=== PATIENT | female | born 1975 | race Caucasian/White ===

== ENCOUNTER 2020-12-17 16:33 | Emergency (ER) | payer MEDICAID, SELFPAY ==
[2020-12-17 16:34] VITALS: BP 142/94; PULSE 90; RESP 18; TEMP 37; O2SAT 97; BMI 29.0
--- NOTE | 2020-12-17 17:27 | CT_ITS ---
PROCEDURE INFORMATION: Exam: CT Abdomen And Pelvis With Contrast Exam date and time: 12/17/20 05:27 PM Age: 45 years old Clinical indication: Abdominal pain; Generalized; Prior surgery; Surgery date: 6+ months; Surgery type: Hysterectomy and bladder; Patient HX: HX of bladder SX, HX of multiple UTI, pain into back, PT has to cath herself due to complications from bladder SX; Additional info: Abdominal pain, HX of bladder surgery TECHNIQUE: Imaging protocol: Computed tomography of the abdomen and pelvis with contrast. Radiation optimization: All CT scans at this facility use at least one of these dose optimization techniques: automated exposure control; mA and/or kV adjustment per patient size (includes targeted exams where dose is matched to clinical indication); or iterative reconstruction. Contrast material: ISOVUE; Contrast volume: 75 ml; Contrast route: IV; COMPARISON: [facility] W/O-RT 09/22/15 01:59 PM FINDINGS: Tubes, catheters and devices: None noted. Lungs: Lung bases appear clear. Heart: No significant coronary calcifications. No cardiomegaly. No significant pericardial effusion. Liver: Normal. No mass. Gallbladder and bile ducts: Normal. No calcified stones. No ductal dilation. Pancreas: Normal. No ductal dilation. Spleen: Normal. No splenomegaly. Adrenal glands: Normal. No mass. Kidneys and ureters: Normal. No hydronephrosis. Stomach and bowel: Moderate stool throughout the colon. No obstruction. No mucosal thickening. Appendix: Appendix is well visualized. No evidence of appendicitis. Intraperitoneal space: Unremarkable. No free air. No significant fluid collection. Retroperitoneal space: No significant retroperitoneal inflammatory changes are noted. Vasculature: Unremarkable. No abdominal aortic aneurysm. Lymph nodes: Unremarkable. No enlarged lymph nodes. Urinary bladder: Unremarkable as visualized. Reproductive: Hysterectomy. Bones/joints: Unremarkable. No acute fracture. Soft tissues: Unremarkable. IMPRESSION: 1. No acute findings. 2. Moderate stool throughout the colon. 3. Hysterectomy. 4. No CT evidence of appendicitis.
[2020-12-17 17:30] VITALS: BP 145/76; PULSE 70; O2SAT 98
[2020-12-17 17:56] LABS: Basophils # 0.1 K/mm3 (0-0.2); Basophils % 0.6 % (0.1-2.0); Eosinophils # 0.2 K/mm3 (0.0-0.4); Eosinophils % 2.5 % (0.1-12.0); Hematocrit 40.3 % (37.0-47.0); Hemoglobin 13.8 g/dL (12.2-16.2); Lymphocytes # 2.2 K/mm3 (0.7-4.5); Lymphocytes % 29.2 % (10-50); Mean Corpuscular HGB Conc 34.4 g/dL (31.8-35.4); Mean Corpuscular Hemoglobin 31.1 pg (27.0-31.2); Mean Corpuscular Volume 90.4 fl (81-99); Mean Platelet Volume 8.4 fl (7.4-10.4); Monocytes # 0.5 K/mm3 (0.1-1.0); Neutrophils # 4.6 K/mm3 (1.8-7.8); Neutrophils % 60.6 % (37.0-80.0); Platelet Count 207 K/mm3 (142-424); Red Blood Count 4.46 M/mm3 (4.20-5.40); Red Cell Distribution Width 13.5 % (11.5-17.5); White Blood Count 7.7 K/mm3 (4.8-10.8)
[2020-12-17 18:02] LABS: HCG Qualitative, Serum Negative (Negative)
[2020-12-17 18:03] LABS: Alanine Aminotransferase 17 U/L (12-78); Albumin Level 4.3 g/dl (3.5-5.0); Albumin/Globulin Ratio 1.7 (1.1-1.8); Alkaline Phosphatase 53 U/L (38-126); Aspartate Amino Transferase 23 U/L (14-36); Bilirubin,Total 0.5 mg/dl (0.2-1.3); Blood Urea Nitrogen 13 mg/dl (7-17); Carbon Dioxide 28 mmol/L (22.0-30.0); Chloride 105 mmol/L (98-107); Creatinine Clearance Estimated 101 mL/min (50-200); Estimated Glomerular Filt Rate 67 ml/min (>60); GFR (African American) 82 ML/MIN (>60); Globulin 2.6 g/dL (1.3-3.2); Glucose 92 mg/dl (74-100); Sodium 138 mmol/L (136-145); Total Protein,Serum 6.9 g/dl (6.3-8.2)
[2020-12-17 18:13] LABS: Microscopic, Urine URINE MICROSCOPIC (MICROSCOPIC)
[2020-12-17 18:18] LABS: Appearance,Urine CLEAR (Clear); Bilirubin,Urine Negative (Negative); Blood, Urine Negative (Negative); Color,Urine YELLOW (Yellow); Glucose,Urine (UA) Negative (Negative); Ketones,Urine Negative (Negative); Leukocyte Esterase,Urine Negative (Negative); Nitrate,Urine Negative (Negative); Protein,Urine Negative (Negative); Urobilinogen,Urine 0.2 EU/dl (0.2)
[2020-12-17 18:26] LABS: WBC,Urine Occasional #/hpf (0-3)
--- NOTE | 2020-12-17 20:50 | HMH.EDGENADL ---
ED Disposition Clinical Impression: Constipation Qualifiers: Constipation type: unspecified constipation type Qualified Code(s): K59.00 - Constipation, unspecified Disposition: Home, Self-Care Condition on Discharge: Good Instructions: DI for Acute Abdominal Pain Additional Instructions: Please take MiraLAX at home as needed for constipation. If symptoms persist or worsen, please follow-up with your PCP. Referrals: Mimi Guzman [Primary Care Provider] - - Critical Care Critical Care Time: No Attestation: On 12/17/20, the high probability of a clinically significant, sudden or life threatening deterioration of the following system(s) required my full and direct attention, intervention and personal management. The time I documented below is in addition to time spent performing reported procedures but includes the following listed in this critical care notation. Medical Decision Making - Medical Records Medical records reviewed: Yes: I reviewed the patient's medical records. - Diallo Inquiry Pt receiving controlled substance: Yes Diallo was queried for this patient: No Reason not queried -: Diallo login issues Risks and benefits of using a controlled substance: were discussed with pt by me Vital Signs: 12/17/20 16:34 12/17/20 17:30 Temperature 98.6 F Temperature Source Oral Pulse Rate 70 Pulse Rate [Right] 90 Respiratory Rate 18 Blood Pressure 145/76 H Blood Pressure [Right Arm] 142/94 H Blood Pressure Mean 95 Blood Pressure Mean [Right Arm] 110 02 Sat by Pulse Oximetry 97 98 Oxygen Delivery Method Room Air - Lab Data Lab Results 12/17/20 17:40: WBC 7.7, RBC 4.46, Hgb 13.8, Hct 40.3, MCV 90.4, MCH 31.1, MCHC 34.4, RDW 13.5, Plt Count 207, MPV 8.4, Neut % (Auto) 60.6, Lymph % (Auto) 29.2, [place] % (Auto) 7.0, Eos % (Auto) 2.5, Baso % (Auto) 0.6, Neut # (Auto) 4.6, Lymph # (Auto) 2.2, [place] # (Auto) 0.5, Eos # (Auto) 0.2, Baso # (Auto) 0.1 12/17/20 17:40: Sodium 138, Potassium 4.0, Chloride 105, Carbon Dioxide 28, Anion Gap 9.0, BUN 13, Creatinine 0.90, Estimated Creat Clear 101, Estimated GFR 67, Est GFR ( Amer) 82, Glucose 92, Calcium 9.0, Total Bilirubin 0.5, AST 23, ALT 17, Alkaline Phosphatase 53, Total Protein 6.9, Albumin 4.3, Globulin 2.6, Albumin/Globulin Ratio 1.7 12/17/20 17:40: Serum HCG, Qual Negative 12/17/20 18:04: Urine Color Yellow, Urine Appearance Clear, Urine pH 8.0, Ur Specific [place] 1.020, Urine Protein Negative, Urine Glucose (UA) Negative, Urine Ketones Negative, Urine Blood Negative, Urine Nitrate Negative, Urine Bilirubin Negative, Urine Urobilinogen 0.2, Ur Leukocyte Esterase Negative, Urine RBC None, Urine WBC Occasional, Ur Squamous Epith Cells 3-5, Urine Bacteria None Result diagrams: 12/17/20 17:40 12/17/20 17:40 Orders (Tests/Meds): ED MEDICATIONS Discontinued Medications Generic Name Dose Route Start Last Admin Trade Name Freq PRN Reason Stop Dose Admin Iopamidol 75 ml 12/17/20 19:12 12/17/20 19:13 Iopamidol-370 (76%);100ml Bottle IV 12/17/20 19:13 75 ml ONCE ONE Administration Sodium Chloride 10 ml 12/17/20 19:12 12/17/20 19:13 Sodium Chloride 0.9% 10ml Syr (Rad Only) IV 12/17/20 19:13 10 ml ONCE ONE Administration - CT Data CT Scan: Abdomen, Pelvis Time Received: 17:[address] Reviewed: Yes: I have reviewed the patient's CT results, I have viewed the radiologist's interpretation Preliminary Findings: Normal/NAD Medical Decision Narrative: On presentation patient is hemodynamically stable and nontoxic-appearing. Patient presents with concerns for UTI. Labs including CBC, CMP were obtained along with a UA. I reviewed patient's labs and urine. Patient's labs are wholly unremarkable. She has a normal white blood cell count, nonactionable electrolytes, negative UA. However, given patient's history of surgery and need for self cathing, CT abdomen pelvis concern given her continued abdominal pain. Reviewed dayanna
[2020-12-17 20:56] VITALS: BP 141/88; PULSE 64; O2SAT 100
[2020-12-17 21:00] VITALS: BP 138/87; PULSE 74; O2SAT 100
[2020-12-17 21:46] VITALS: BP 138/87; PULSE 74; RESP 16; TEMP 37; O2SAT 100
== END 2020-12-17 21:47 | disposition home or self-care (01) ==
PROVIDERS: Emergency Provider Emergency Medicine; PCP Nurse Practitioner Family
DX: K59.00 Constipation, unspecified (principal)
CPT/HCPCS: 74177; 80053; 81001; 84703; 85025; 99282; 99283; Q9967

== ENCOUNTER 2021-12-20 11:10 | Emergency (ER) | payer MEDICAID, SELFPAY ==
[2021-12-20 11:15] VITALS: BP 130/63; PULSE 69; RESP 19; TEMP 36.8; O2SAT 98; BMI 27.4
[2021-12-20 11:24] LABS: Apearance,Urine Cloudy (Clear); Bilirubin,Urine Negative (Negative); Blood, Urine Negative (Negative); Color,Urine Dark Yellow (Yellow); Glucose,Urine (UA) Negative (Negative); Ketones,Urine Negative (Negative); PH,Urine 5.5 (5.0-8.5); Protein,Urine Negative (Negative); UTC Leukocyte Esterase,Urine Trace (Negative); Urobilinogen,Urine 0.2 EU/dl (0.2)
[2021-12-20 11:25] LABS: UTC Nitrate,Urine Negative (Negative)
--- NOTE | 2021-12-20 11:39 | HMH.EDUTC ---
[facility] [place] Disposition Condition on Discharge: Good Time of Disposition: 14:41 <RafiqEssence greeneshua - Last Filed: 12/20/21 14:37> <ShemarAlice - Last Filed: 12/20/21 16:07> Clinical Impression: Flank pain, Low back pain Disposition: Home, Self-Care Instructions: Low Back Pain Prescriptions: methocarbamoL [Methocarbamol] 750 mg PO Q6 5 Days #20 tab Transmission Status: Received by [facility] Referrals: Mimi Guzman [Primary Care Provider] - Medical Decision Making - Lab Data Result diagrams: 12/20/21 12:15 12/20/21 12:15 - Reevaluation(s) Time: 14:38 (assumed care, left flank and LLQ pain, normal UA, ultimately normal labs and CT. No evidence of nephrolithiasis, diverticulitis or other acute pathology. Had been going on for a few weeks but worsened recently. clinical picture c/w MSK etiology will treat as such. Return precuations discussed. ) <PepitoTi - Last Filed: 12/20/21 14:37> - Diallo Inquiry Pt receiving controlled substance: No Diallo was queried for this patient: No - Lab Data Lab results reviewed: Yes: I reviewed the patient's lab results. Result diagrams: 12/20/21 12:15 12/20/21 12:15 <ShemarAlice - Last Filed: 12/20/21 16:07> Vital Signs: 12/20/21 11:15 12/20/21 12:20 12/20/21 13:01 Temperature 98.3 F 98.3 F Temperature Source Oral Oral Pulse Rate 63 Pulse Rate [Right Brachial] 69 60 Respiratory Rate 19 17 16 Blood Pressure 151/84 H Blood Pressure [Right Arm] 130/63 131/71 Blood Pressure Mean 96 Blood Pressure Mean [Right Arm] 85 91 Blood Pressure Source Blood Pressure Source [Right Arm] Automatic Cuff Blood Pressure Position Blood Pressure Position [Right Arm] Sitting 02 Sat by Pulse Oximetry 98 100 99 Oxygen Delivery Method Room Air Room Air Room Air 12/20/21 13:30 12/20/21 14:00 12/20/21 15:04 Temperature 98.3 F Temperature Source Pulse Rate 64 62 60 Pulse Rate [Right Brachial] Respiratory Rate 16 16 16 Blood Pressure 136/77 131/80 152/82 H Blood Pressure [Right Arm] Blood Pressure Mean 94 99 Blood Pressure Mean [Right Arm] Blood Pressure Source Automatic Cuff Blood Pressure Source [Right Arm] Blood Pressure Position Sitting Blood Pressure Position [Right Arm] 02 Sat by Pulse Oximetry 97 97 Oxygen Delivery Method Room Air - Lab Data Lab Results 12/20/21 11:13: Urine Color Dark yellow, Urine Appearance Cloudy, Urine pH 5.5, Ur Specific [place] 1.030, Urine Protein Negative, Urine Glucose (UA) Negative, Urine Ketones Negative, Urine Blood Negative, Urine Nitrate Negative, Urine Bilirubin Negative, Urine Urobilinogen 0.2, Ur Leukocyte Esterase Trace 12/20/21 12:15: Serum HCG, Qual Negative 12/20/21 12:15: WBC 6.9, RBC 4.40, Hgb 13.9, Hct 42.8, MCV 97.5, MCH 31.6 H, MCHC 32.4, RDW 13.4, Plt Count 229, MPV 8.5, Neut % (Auto) 60.7, Lymph % (Auto) 30.1, [place] % (Auto) 6.0, Eos % (Auto) 1.7, Baso % (Auto) 1.6, Neut # (Auto) 4.2, Lymph # (Auto) 2.1, [place] # (Auto) 0.4, Eos # (Auto) 0.1, Baso # (Auto) 0.1 12/20/21 12:15: Sodium 136, Potassium 4.6, Chloride 103, Carbon Dioxide 28, Anion Gap 9.6, BUN 16, Creatinine 0.70, Estimated Creat Clear 132, Estimated GFR 90, Est GFR ( Amer) 109, Glucose 108 H, Calcium 9.5, Total Bilirubin 0.4, AST 37 H, ALT 35, Alkaline Phosphatase 86, Total Protein 7.0, Albumin 4.4, Globulin 2.6, Albumin/Globulin Ratio 1.7 Orders (Tests/Meds): ED MEDICATIONS Discontinued Medications Generic Name Dose Route Start Last Admin Trade Name Freq PRN Reason Stop Dose Admin Sodium Chloride 1,000 mls @ 999 mls/hr 12/20/21 12:15 12/20/21 12:22 Sod Chlor 0.9% 1000ml Bag IV 12/20/21 13:15 999 mls/hr .Q1H1M JACQUELYN Administration Iopamidol 75 ml 12/20/21 13:03 12/20/21 13:04 Iopamidol-370 (76%);100ml Bottle IV 12/20/21 13:04 75 ml ONCE ONE Administration Ketorolac Tromethamine 15 mg 12/20/21 11:59 12/20/21 12:21 Ketorolac 30mg/Ml Vial IV 12/20/21 12:00 15 mg
--- NOTE | 2021-12-20 11:40 | PC.NURSE ---
PATIENT SENT TO ER PER Pau PAYNE APRN FOR FURTHER EVALUATION. REPORT GIVEN TO Donny FERNÁNDEZ RN BY Pau PAYNE APRN
--- NOTE | 2021-12-20 11:55 | CT_ITS ---
FINAL REPORT TECHNIQUE: After the administration of intravenous contrast, axial images were obtained through the abdomen and pelvis by computed tomography. The study was performed with techniques to keep radiation dose as low as reasonably achievable, (ALARA). Individual dose reduction techniques using automated exposure control or adjustment of mA and/or kV according to the patient's size were employed. CLINICAL HISTORY: LLQ pain FINDINGS: Abdomen: The lung bases are clear. The liver parenchyma is homogeneous. The gallbladder is present. The spleen, pancreas, adrenals and kidneys appear unremarkable. The aorta is normal in caliber. There is no free fluid or adenopathy. There is a large amount of retained stool in the colon. Pelvis: The appendix is normal. The urinary bladder is unremarkable. There is no free fluid or adenopathy. There is no localized inflammatory change. IMPRESSION: No acute intra-abdominal process. Large amount of retained stool. Reviewed, Interpreted and Dictated by Roc Walden MD Transcribed by Bruno Oseguera Authenticated and [facility]
--- NOTE | 2021-12-20 12:16 | PC.NURSE ---
IV established and blood sent to the lab
[2021-12-20 12:20] VITALS: BP 131/71; PULSE 60; RESP 17; TEMP 36.8; O2SAT 100; BMI 27.5
[2021-12-20 12:23] LABS: Basophils # 0.1 K/mm3 (0-0.2); Basophils % 1.6 % (0.1-2.0); Eosinophils # 0.1 K/mm3 (0.0-0.4); Eosinophils % 1.7 % (0.1-12.0); Hematocrit 42.8 % (37.0-47.0); Hemoglobin 13.9 g/dL (12.2-16.2); Lymphocytes # 2.1 K/mm3 (0.7-4.5); Lymphocytes % 30.1 % (10-50); Mean Corpuscular HGB Conc 32.4 g/dL (31.8-35.4); Mean Corpuscular Hemoglobin 31.6 pg (27.0-31.2); Mean Corpuscular Volume 97.5 fl (81-99); Mean Platelet Volume 8.5 fl (7.4-10.4); Monocytes # 0.4 K/mm3 (0.1-1.0); Neutrophils # 4.2 K/mm3 (1.8-7.8); Neutrophils % 60.7 % (37.0-80.0); Platelet Count 229 K/mm3 (142-424); Red Cell Distribution Width 13.4 % (11.5-17.5); White Blood Count 6.9 K/mm3 (4.8-10.8)
[2021-12-20 12:31] LABS: Chloride 103 mmol/L (98-107); Potassium 4.6 mmoL/L (3.5-5.1); Sodium 136 mmol/L (136-145)
[2021-12-20 12:33] LABS: Blood Urea Nitrogen 16 mg/dl (7-17)
[2021-12-20 12:34] LABS: Alanine Aminotransferase 35 U/L (12-78); Albumin Level 4.4 g/dl (3.5-5.0); Albumin/Globulin Ratio 1.7 (1.1-1.8); Alkaline Phosphatase 86 U/L (38-126); Anion Gap 9.6 mEq/L (5-15); Aspartate Amino Transferase 37 U/L (14-36); Bilirubin,Total 0.4 mg/dl (0.2-1.3); Carbon Dioxide 28 mmol/L (22.0-30.0); Creatinine Clearance Estimated 132 mL/min (50-200); Estimated Glomerular Filt Rate 90 ml/min (>60); GFR (African American) 109 ML/MIN (>60); Globulin 2.6 g/dL (1.3-3.2)
[2021-12-20 12:36] LABS: HCG Qualitative, Serum Negative (Negative)
[2021-12-20 12:40] LABS: Calcium 9.5 mg/dl (8.4-10.2); Glucose 108 mg/dl (74-100)
--- NOTE | 2021-12-20 12:58 | PC.NURSE ---
pt return from radiology
--- NOTE | 2021-12-20 13:00 | PC.NURSE ---
checked on pt at this time, pt states no now, laying down in bed. will continue to monitor
[2021-12-20 13:01] VITALS: BP 151/84; PULSE 63; RESP 16; O2SAT 99
[2021-12-20 13:30] VITALS: BP 136/77; PULSE 64; RESP 16; O2SAT 97
--- NOTE | 2021-12-20 13:47 | PC.NURSE ---
sitter remains at bedside. ordered pain medication given at this time.
[2021-12-20 14:00] VITALS: BP 131/80; PULSE 62; RESP 16; O2SAT 97
--- NOTE | 2021-12-20 14:07 | PC.NURSE ---
rounded on pt. pt requesting to be unhooked to go to the restroom. pt ambulated to the restroom with no complications. updated on POC
--- NOTE | 2021-12-20 14:11 | PC.NURSE ---
Pt ambulated back from the restroom
--- NOTE | 2021-12-20 14:22 | PC.NURSE ---
ordered pain medication given to pt
--- NOTE | 2021-12-20 14:46 | PC.WOUNDNOTE ---
at the bedside to discuss CT results
[2021-12-20 15:04] VITALS: BP 152/82; PULSE 60; RESP 16; TEMP 36.8; O2SAT 100
== END 2021-12-20 15:04 | disposition home or self-care (01) ==
LOC: UTC 11:13 → ER 11:46
PROVIDERS: Nurse Practitioner; Emergency Provider Emergency Medicine; PCP Nurse Practitioner Family
DX: R10.9 Unspecified abdominal pain (principal); M54.50 Low back pain, unspecified
CPT/HCPCS: 74177; 80053; 81003; 84703; 85025; 87086; 87088; 87186; 96361; 96374; 96375; 96376; 99284; J2405; Q9967

== ENCOUNTER → 2022-03-05 10:09 | Outpatient (CLI) | payer MEDICAID, SELFPAY ==
--- NOTE | 2022-03-05 10:10 | NM_ITS ---
FINAL REPORT TECHNIQUE: The patient was injected with 8.88 mCi of technetium 99m Choletec and subsequently ingestion of Ensure. Images of the abdomen were obtained for one hour. CLINICAL HISTORY: Right upper quad pain 10:30AM 8.88 MCI TC CHOLETEC ENSURE Prior US was done at another facility, report is attached FINDINGS: Hepatic uptake is normal. There is gallbladder and small bowel activity at 30 minutes. Post Kinevac images render an ejection fraction of 54 %. IMPRESSION: Normal hepatobiliary scan. Normal ejection fraction. Reviewed, Interpreted and Dictated by Abdulkadir Brower MD Transcribed by Bruno Oseguera Authenticated and [facility]
--- NOTE | 2022-03-05 10:38 | HMH.ITSHM ---
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 []CARVEDILOL VALSARTAN METHOCARBAMAL PAROXETINE
== END ==
PROVIDERS: PCP Nurse Practitioner Family; Visit Provider Surgery
DX: R10.11 Right upper quadrant pain (principal)
CPT/HCPCS: 78226; A9537

== ENCOUNTER 2022-03-14 10:32 | Emergency (ER) | payer MEDICAID, SELFPAY ==
[2022-03-14 10:45] VITALS: BP 143/83; PULSE 69; RESP 19; TEMP 36.7; O2SAT 98
--- NOTE | 2022-03-14 11:11 | EXP.UTC ---
Discharge Plan Disposition Patient Disposition: Home, Self-Care Condition: Good Prescriptions Prescriptions: New amoxicillin 875 mg tablet 875 mg PO BID Qty: 20 0RF meclizine 25 mg tablet 25 mg PO TID PRN (Reason: dizziness) Qty: 15 0RF No Action valsartan 80 MG tablet 80 mg PO DAILY carvedilol 3.125 MG tablet 3.125 mg PO BID paroxetine HCl 40 MG tablet 40 mg PO DAILY methocarbamol 750 MG tablet 750 mg PO Q6 5 Days Qty: 20 0RF Referrals Follow up/Referrals: Mimi Guzman [Primary Care Provider] - See instructions Activity Restrictions/Add. Instructions Additional Instructions/Restrictions: *Monitor Temp, Over the counter Motrin or Tylenol as directed/as needed Tylenol every 4 hours and Motrin every 6 hours (as long as your family doctor has told you that you can take it) for fever or pain. and straight to ER if unable to lower temp less than 101.0 after medication given Take medication as prescribed *Sleep elevated *Humidifier/Vaporizer Follow up IMMEDIATELY for new or worsening symptoms or no Noticeable improvement over the next 48-72 hours. 911 for difficulty breathing or swallowing Clinical Impressions Clinical Impression: Vertigo Otitis media Qualifiers: Otitis media type: unspecified Laterality: left Qualified Code(s): H66.92 - Otitis media, unspecified, left ear Instructions Patient Instructions: Middle Ear Infection, DI for Vertigo Discharge ED Provider[place] [facility] [place] Stated complaint: Ear pain both ears, dizzy Mode of Arrival: Ambulatory Source of Information: Patient Limitations: No Limitations Time Seen by Provider: 03/14/22 11:11 Description of Symptoms (Recalled from Triage Doc. by RN): PATIENT C/O DIZZINESS AND BILATERAL EARS BEING FULL X 2 DAYS HEENT Symptoms (Recalled from RN notes): Yes Resp Symptoms (Recalled from RN notes): No Skin Symptoms (Recalled from RN notes): No MS Symptoms (Recalled from RN notes): No Functional Status (Recalled from RN notes): WNL History of Present Illness Provider Complaint: Patient states that she has been having pain and pressure in both ears but worse in left States that when she turns her head she feels dizzy States that she gets this way every now and then and today it was worse so she came in Related Data Home Medications Medication Instructions Recorded Confirmed carvedilol 3.125 mg tablet 3.125 mg PO BID HEART 12/20/21 03/13/22 paroxetine HCl 40 mg tablet 40 mg PO DAILY Anxiety 12/20/21 03/13/22 valsartan 80 mg tablet 80 mg PO DAILY Hypertension 12/20/21 03/13/22 Previous Rx's Medication Instructions Recorded methocarbamol 750 mg tablet 750 mg PO Q6 5 days #20 tabs 12/20/21 amoxicillin 875 mg tablet 875 mg PO BID #20 tabs 03/14/22 meclizine 25 mg tablet 25 mg PO TID PRN dizziness #15 tabs 03/14/22 Allergies Allergy/AdvReac Type Severity Reaction Status Date / Time buspirone [From BuSpar] Allergy Verified 03/13/22 13:10 Worker's Comp Is this a Worker's Comp case?: No [facility] Medical History (Updated 03/14/22 @ 11:21 by Melvi Staton APRN) Anxiety Hypertension Urinary tract infection Surgical History (Updated 03/14/22 @ 10:57 by Amy Salter RN) History of hysterectomy History of tonsillectomy Social History (Updated 03/14/22 @ 10:57 by Amy Salter RN) Smoking Status: Never smoker alcohol intake: never current occupational status: other Travel in the last 8 weeks: None ROS Obtained: Yes All systems reviewed & no additional complaints except as documented and Yes Systems reviewed as appropriate & no additional complaints except as documented Constitutional Constitutional: Reports system reviewed and no additional complaints, except as documented, Reports as per HPI and Denies fever(s) ENT Ears, Nose, Mouth, and Throat: Reports system reviewed and no additional complaints, except as documented, Reports as per HPI, Reports dizzine
[2022-03-14 11:24] VITALS: BP 143/83; PULSE 69; RESP 19; TEMP 36.7; O2SAT 98
== END 2022-03-14 11:27 | disposition home or self-care (01) ==
PROVIDERS: Emergency Provider Nurse Practitioner; PCP Nurse Practitioner Family
DX: H66.92 Otitis media, unspecified, left ear
CPT/HCPCS: 99212; G0463

== ENCOUNTER 2022-08-01 13:30 | Emergency (ER) | payer MEDICAID, SELFPAY ==
[2022-08-01 13:40] VITALS: BP 138/85; PULSE 78; RESP 20; TEMP 37.2; O2SAT 96; BMI 30.6
--- NOTE | 2022-08-01 13:57 | EXP.UTC ---
Discharge Plan Disposition Patient Disposition: Home, Self-Care Condition: Good Prescriptions Prescriptions: New prednisolone acetate [Pred Forte] 1 % drops,suspension 1 drp ophthalmic (eye) QID 2 Days Qty: 5 0RF Rx Instructions: bilateral eyes No Action valsartan 80 MG tablet 80 mg PO DAILY carvedilol 3.125 MG tablet 3.125 mg PO BID paroxetine HCl 40 MG tablet 40 mg PO DAILY methocarbamol 750 MG tablet 750 mg PO Q6 5 Days Qty: 20 0RF amoxicillin 875 mg tablet 875 mg PO BID Qty: 20 0RF meclizine 25 mg tablet 25 mg PO TID PRN (Reason: dizziness) Qty: 15 0RF Referrals Follow up/Referrals: Mimi Guzman [Primary Care Provider] - See instructions Activity Restrictions/Add. Instructions Additional Instructions/Restrictions: Use drops as prescribed and only use them for 2 days Follow up with your Eye Doctor if no improvement or any worsening of symptoms Over the counter Coriciden HBP sinus congestion may help with stuffy nose Follow up with your Family Doctor if needed Clinical Impressions Clinical Impression: Allergic rhinitis Stand Alone Forms Stand Alone Forms: Work/School Release Instructions Patient Instructions: How to Instill Eye Drops, Allergic Rhinitis [place]charge ED [place] [facility] [place] General Stated complaint: Eye redness, itchy, watery congestion sore throat Mode of Arrival: Ambulatory Source of Information: Patient Limitations: No Limitations Time Seen by Provider: 08/01/22 13:57 Description of Symptoms (Recalled from Triage Doc. by RN): PATIENT C/O ITCHY, WATER EYES, FEVER, SCRATCHY THROAT AND SINUS DRAINAGE X 2 DAYS HEENT Symptoms (Recalled from RN notes): Yes Resp Symptoms (Recalled from RN notes): No Skin Symptoms (Recalled from RN notes): No MS Symptoms (Recalled from RN notes): No Functional Status (Recalled from RN notes): WNL History of Present Illness Provider Complaint: Patient states that she has been having itchy watery eyes with drainage, sinus congestion and pressure and scratchy throat States that she felt like it was allergies but knew that pink eye was going around and concerned that she may have it Related Data Home Medications Medication Instructions Recorded Confirmed carvedilol 3.125 mg tablet 3.125 mg PO BID HEART 12/20/21 03/13/22 paroxetine HCl 40 mg tablet 40 mg PO DAILY Anxiety 12/20/21 03/13/22 valsartan 80 mg tablet 80 mg PO DAILY Hypertension 12/20/21 03/13/22 Previous Rx's Medication Instructions Recorded methocarbamol 750 mg tablet 750 mg PO Q6 5 days #20 tabs 12/20/21 amoxicillin 875 mg tablet 875 mg PO BID #20 tabs 03/14/22 meclizine 25 mg tablet 25 mg PO TID PRN dizziness #15 tabs 03/14/22 prednisolone acetate 1 % eye 1 drp ophthalmic (eye) QID 2 days 08/01/22 drops,suspension (Pred Forte) #5 mL Allergies Allergy/AdvReac Type Severity Reaction Status Date / Time buspirone [From BuSpar] Allergy Verified 03/13/22 13:10 Worker's Comp Is this a Worker's Comp case?: No [facility] Disclaimer: The information contained in this section may have been updated after the patient was seen, as this information can be updated by other users. Medical History (Updated 08/01/22 @ 14:20 by Melvi Staton APRN) Anxiety Hypertension Urinary tract infection Surgical History (Updated 03/14/22 @ 10:57 by Amy Salter RN) History of hysterectomy History of tonsillectomy Social History (Updated 03/14/22 @ 10:57 by Amy Salter RN) Smoking Status: Never smoker alcohol intake: never current occupational status: other Travel in the last 8 weeks: None ROS Obtained: Yes All systems reviewed & no additional complaints except as documented and Yes Systems reviewed as appropriate & no additional complaints except as documented Constitutional Constitutional: Reports system reviewed and no additional complaints, except as documented and Reports as per HPI Eyes Eyes: Rep
[2022-08-01 14:19] VITALS: BP 138/85; PULSE 78; RESP 20; TEMP 37.2; O2SAT 96
== END 2022-08-01 14:21 | disposition home or self-care (01) ==
PROVIDERS: Emergency Provider Nurse Practitioner; PCP Nurse Practitioner Family
DX: J30.9 Allergic rhinitis, unspecified (principal)
CPT/HCPCS: 99212; 99213; G0463

== ENCOUNTER → 2022-11-27 10:07 | Outpatient (CLI) | payer MEDICAID, SELFPAY ==
[2022-11-27 10:48] LABS: Basophils % 0.3 % (0.1-2.0); Eosinophils # 0.1 K/mm3 (0.0-0.4); Eosinophils % 1.3 % (0.1-12.0); Hematocrit 39.9 % (37.0-47.0); Hemoglobin 12.9 g/dL (12.2-16.2); Lymphocytes # 2.1 K/mm3 (0.7-4.5); Mean Corpuscular HGB Conc 32.4 g/dL (31.8-35.4); Mean Corpuscular Hemoglobin 29.7 pg (27.0-31.2); Mean Corpuscular Volume 91.8 fl (81-99); Mean Platelet Volume 8.5 fl (7.4-10.4); Monocytes # 0.4 K/mm3 (0.1-1.0); Monocytes % 6.1 % (1.7-9.3); Neutrophils # 3.2 K/mm3 (1.8-7.8); Neutrophils % 56.2 % (37.0-80.0); Platelet Count 260 K/mm3 (142-424); Red Blood Count 4.34 M/mm3 (4.20-5.40); Red Cell Distribution Width 13.4 % (11.5-17.5); White Blood Count 5.7 K/mm3 (4.8-10.8)
[2022-11-27 11:08] LABS: Chloride 103 mmol/L (98-107); Sodium 140 mmol/L (136-145)
[2022-11-27 11:11] LABS: Alanine Aminotransferase 25 U/L (12-78); Albumin Level 4.2 g/dl (3.5-5.0); Albumin/Globulin Ratio 1.9 (1.1-1.8); Alkaline Phosphatase 65 U/L (38-126); Aspartate Amino Transferase 29 U/L (14-36); Bilirubin,Total 0.4 mg/dl (0.2-1.3); Blood Urea Nitrogen 14 mg/dl (7-17); Carbon Dioxide 28 mmol/L (22.0-30.0); Estimated Glomerular Filt Rate 77 ml/min (>60); GFR (African American) 93 ML/MIN (>60); Globulin 2.2 g/dL (1.3-3.2); Total Protein,Serum 6.4 g/dl (6.3-8.2)
[2022-11-27 11:12] LABS: Calcium 8.9 mg/dl (8.4-10.2); Glucose 105 mg/dl (74-100)
[2022-11-27 11:17] LABS: Anion Gap 13.3 mEq/L (5-15); Potassium 4.3 mmoL/L (3.5-5.1)
== END ==
PROVIDERS: PCP Nurse Practitioner Family; Visit Provider Surgery
DX: K82.8 Other specified diseases of gallbladder (principal); Z01.812 Encounter for preprocedural laboratory examination
CPT/HCPCS: 36415; 80053; 85025

== ENCOUNTER 2022-12-05 08:24 | Day surgery (SDC) | payer MEDICAID, SELFPAY ==
[2022-12-04 13:33] VITALS: BMI 29.9
[2022-12-05] VITALS (10 sets, daily range): BP systolic 129–161; BP diastolic 78–103; PULSE 62–100; RESP 12–18; TEMP 36.2–43; O2SAT 92–100
--- NOTE | 2022-12-05 09:28 | EXP.ANES.CKL ---
[facility] Disclaimer: The information contained in this section may have been updated after the patient was seen, as this information can be updated by other users. Medical History Anxiety Bladder problem Hypertension Urinary tract infection Surgical History History of colonoscopy History of hysterectomy History of tonsillectomy Family History Father Heart attack Mother Diabetes Grandmother Breast cancer Social History Smoking Status: Never smoker alcohol intake: never substance use type: denies use current occupational status: employed Travel in the last 8 weeks: None [facility] Anesthesia Checklist Patient Identification Patient Identification: Arm Band and Verbal (Name & ) Structural Data Admitted From: Home Planned Operative Procedure/s: Lap. cholecystectomy Consent for Planned Operative Procedure(s) Verified: Yes NPO Status Verified Time NPO: 00:00 Chart Verification Results Verified: CBC and BMP Additional verifications Anesthesia Reactions: No Hx Blood Transfusions: No Blood Transfusion Reaction: No Airway Assessment C-Spine Mobility Assessed: Yes TMJ Mobility Assessed: Yes Dentition: Good Dentition Neurological Assessment Level of Consciousness: Awake Hx Seizures: No Numbness or tingling in extremities: No Anesthesia Plan Anesthesia Risk discussed: Yes Anesthesia Plan: Verified ASA Class: II Anesthesia Type: General
--- NOTE | 2022-12-05 10:36 | P.OP_ITS ---
Date of procedure: 12/05/22 Pre-op Diagnosis:: Biliary dyskinesia Post-op Diagnosis:: Same Procedure performed:: Laparoscopic cholecystectomy Surgeon:: Piotr Fry MD FLAVOR ROOM WORKER:: Hayes Diane Anesthesia: GETRichy Estimated blood loss (mL): 10 Operative findings:: Mild infundibular thickening Operative note:: After informed consent was obtained, the patient was taken to the operating room and placed in the supine position. General anesthesia was induced and the abdomen was prepped and draped in a sterile fashion. After infiltration with local anesthetic an infraumbilical incision was made. A Veress needle was plac ed in position. The abdomen was insufflated. A 5 mm optical trocar was placed in position. Under direct visualization, a 12 mm trocar was placed in the subxiphoid position and 2 additional 5 mm trocars were placed in the right upper quadrant. The gallbladder was elevated up and over the liver margin. The tissue around the cystic duct was carefully dissected. 3 clips were placed proximally and the duct was transected with harmonic wyatt. Harmonic wyatt were then utilized to dissect the gallbladder away from the liver margin with careful attention to the control of the cystic artery. The gallbladder was placed in a retrieval bag and removed through the subxiphoid trocar site. The right upper quadrant was thoroughly irrigated. No active bleeding or bile leak was noted. Fascia at the subxiphoid trocar site was reapproximated utilizing the NeoClose device. The remaining trocars were removed. All wounds were irrigated and skin was closed with 4-0 Monocryl in a subcuticular fashion. Steri-Strips were applied. The patient's anesthetic agents were reversed and extubation was completed prior to transfer to recovery in stable condition. Condition: stable Disposition: PACU Specimens:: Gallbladder and contents Complications:: No immediate
--- NOTE | 2022-12-05 10:44 | P.PNANES_ITS ---
[facility] Anesthesia Record Part I Anesthesia Record I Intake, IV Amount: 1,000 Estimated blood loss (mL): 10 Urine output (mL): 0 Blood Pressure: 147/103 SaO2: 94 Pulse Rate: 80 Respiratory Rate: 18 Temperature: 97.1 F Patient is:: Drowsy and Oral/Nasal airway Stable to PACU at:: 10:44
--- NOTE | 2022-12-05 10:56 | PC.NURSE ---
1044-pt arrived to PACU with oral airway present. 1056- oral airway removed
--- NOTE | 2022-12-09 08:04 | P.PNANES_ITS ---
[facility] Anesthesia Record Part II Anesthesia Record Part II Discharge Time: 11:14 Destination: Surgical Day Care (OP Surgery) PACU nurse assessment reviewed?: Yes Patient Condition:: Good Anesthesia Complications:: None Swallowing reflex intact?: Yes Cyanosis?: No Blood Pressure: 152/98 Pulse Rate: 89 Temperature: 98.2 F Mental Status: Alert & Oriented Pain level:: 0 Nausea and/or vomitting:: None Intake, IV Amount: 0
[2022-12-09 08:05] VITALS: BP 152/98; PULSE 89; TEMP 36.8
== END 2022-12-05 11:48 | disposition home or self-care (01) ==
PROVIDERS: PCP Nurse Practitioner Family; Visit Provider Surgery
PROC: 0FT44ZZ Resection of Gallbladder, Percutaneous Endoscopic Approach (ICD-10-PCS; CPT 47562; principal; 2022-12-05 10:00)
DX: K81.1 Chronic cholecystitis (principal); K82.8 Other specified diseases of gallbladder
CPT/HCPCS: 47562; 96374; J2405

== ENCOUNTER 2023-07-23 12:29 | Emergency (ER) | payer OTHER, SELFPAY ==
[2023-07-23 12:40] VITALS: BP 123/78; PULSE 84; RESP 20; TEMP 37.1; O2SAT 96; BMI 31.4
--- NOTE | 2023-07-23 12:46 | EXP.UTC ---
Discharge Plan Disposition Patient Disposition: Home, Self-Care Condition: Good Prescriptions Prescriptions: New methylprednisolone 4 mg Tablets,Dose Pack 4 mg PO DIRECTED 6 Days Qty: 21 0RF Rx Instructions: Take 1 pack as directed for 6 days phenazopyridine [Pyridium] 200 mg tablet 200 mg PO Q8H 2 Days Qty: 6 0RF ondansetron 4 mg Tablet,Disintegrating 4 mg PO Q8H PRN (Reason: Nausea) Qty: 12 0RF cephalexin 500 mg capsule 500 mg PO QID Qty: 40 0RF No Action valsartan 80 MG tablet 80 mg PO DAILY carvedilol 3.125 MG tablet 3.125 mg PO BID paroxetine HCl 40 MG tablet 40 mg PO DAILY Referrals Follow up/Referrals: Mmii Guzman [Primary Care Provider] - See instructions Activity Restrictions/Add. Instructions Additional Instructions/Restrictions: Drink plenty of fluids. Take tylenol or ibuprofen for pain or fever. Take the medications as directed. Follow up with your regular doctor. GO TO THE ER FOR ANY WORSENING SYMPTOMS We will culture the urine. That will tell what bacteria is causing your infection and which antibiotics will treat it best. Sometimes the first antibiotic we prescribe turns out to not work against different bacteria. So, make sure you follow up within 3 days if you are not getting better. Clinical Impressions Clinical Impression: UTI (urinary tract infection), Otitis media, Low back pain, Upper respiratory infection Stand Alone Forms Stand Alone Forms: Work/School Release Instructions Patient Instructions: Urinary Tract Infection, Low Back Pain, Urine Culture, Ondansetron, Phenazopyridine Discharge ED Provider: Gregg Wilder [facility] General Stated complaint: congestion, vomiting Time Seen by Provider: 07/23/23 12:46 History of Present Illness Provider Complaint: She states that for the past 2 days she has had low back pain, lower abdominal discomfort, strong foul smelling urine and malaise. She has a history of having to straight cath herself to void. She states that she gets UTI's occasionally and this is exactly how she feels when they occur. She also c/o sore throat and sinus congestion for the past 5 days. Related Data Home Medications Medication Instructions Recorded Confirmed carvedilol 3.125 mg tablet 3.125 mg PO BID HEART 12/20/21 07/23/23 paroxetine HCl 40 mg tablet 40 mg PO DAILY Anxiety 12/20/21 07/23/23 valsartan 80 mg tablet 80 mg PO DAILY Hypertension 12/20/21 07/23/23 Previous Rx's Medication Instructions Recorded cephalexin 500 mg capsule 500 mg PO QID #40 caps 07/23/23 methylprednisolone 4 mg tablets in 4 mg PO DIRECTED 6 days #21 tabs 07/23/23 a dose pack ondansetron 4 mg disintegrating 4 mg PO Q8H PRN Nausea #12 tabs 07/23/23 tablet phenazopyridine 200 mg tablet 200 mg PO Q8H 2 days #6 tabs 07/23/23 (Pyridium) Allergies Allergy/AdvReac Type Severity Reaction Status Date / Time ciprofloxacin Allergy Unknown NAUSEA / Verified 07/23/23 12:58 VOMITING buspirone [From BuSpar] Allergy Rash [facility]23 [facility] Disclaimer: The information contained in this section may have been updated after the patient was seen, as this information can be updated by other users. Medical History (Updated 07/23/23 @ 13:13 by Gregg Wilder APRN) Anxiety Bladder problem Hypertension Urinary tract infection Surgical History History of colonoscopy History of hysterectomy History of laparoscopic cholecystectomy History of tonsillectomy Family History Father Heart attack Mother Diabetes Grandmother Breast cancer Social History Smoking Status: Never smoker alcohol intake: never substance use type: denies use current occupational status: employed Travel in the last 8 weeks: None ROS Obtained: Yes All systems reviewed & no additional complaints except as documented Constitutional Constitutional: Reports system reviewed and no additional complaints, except as documented, Denies chills, Denies fever(s) and Reports headache(s) Eyes Eyes: Denies eye discharge ENT Ears, Nose, Mouth, and Throat: Denies dysphagia, Reports otalgia, Reports facial pain, Reports headache(s), Reports sinus pressure, Reports sore throat and Denies throat swelling Cardiovascular Cardiovascular: Denies chest pain and Denies dyspnea Respiratory Respiratory: Denies chest congestion, Denies cough and Denies dyspnea Gastrointestinal Gastrointestingal: Denies abdominal pain, constipation, diarrhea, dysphagia, nausea or vomiting Genitourinary Female Genitourinary: Reports as per HPI, Reports dysuria, Reports urinary frequency, Denies urinary incontinence, Reports urinary hesitancy and Reports urinary urgency Musculoskeletal Musculoskeletal: Reports as per HPI and Reports back pain Integumentary/Breasts Skin/Breast: Denies rash Neurologic Neurologic: Reports headache(s) and Denies paresthesias Allergic/Immunologic Allergic/Immunologic: Denies throat swelling Physical Exam General General appearance: alert and in no apparent distress Head Head exam: atraumatic and normocephalic Eye Eye exam: Present normal appearance, PERRL and EOMI ENT ENT exam: Present normal exam, mucous membranes moist, TM's normal bilaterally and normal external ear exam Neck Neck exam: Present normal inspection, full ROM and trachea midline; Absent tenderness, meningismus or lymphadenopathy Chest Chest inspection: Present normal inspection and symmetric chest wall rise; Absent tenderness Respiratory Respiratory exam: Present normal lung sounds bilaterally; Absent respiratory distress, wheezes or stridor Cardiovascular Cardiovascular exam: Present regular rate, normal rhythm and normal heart sounds Abdominal Exam Abdominal exam: Present soft and normal bowel sounds; Absent distention, tenderness, guarding, rebound, rigidity, incision, psoas sign, obturator sign, heel tap sign, Trejo's sign, Rovsing's sign or tenderness at McBurney's Point Extremities Exam Extremities exam: Present normal inspection, full ROM and normal capillary refill; Absent tenderness, edema, joint swelling, calf tenderness or cyanosis Back Exam Back exam: Present normal inspection and full ROM; Absent tenderness, CVA tenderness (R) or CVA tenderness (L) Neurological Exam Neurological exam: Present alert, oriented X3 and normal gait Psychiatric Psychiatric exam: Present normal affect and normal mood Skin Skin exam: Present warm, dry, intact and normal color Lymphatic Lymphatic Findings: no adenopathy Medical Decision Making Medical Records Medical records reviewed: No I reviewed the patient's medical records. [place] Inquiry Pt receiving controlled substance: No Lab Data Lab results reviewed: Yes I reviewed the patient's lab results.
[2023-07-23 12:53] LABS: Apearance,Urine Cloudy (Clear); Blood, Urine Negative (Negative); Color,Urine Dark Yellow (Yellow); Glucose,Urine (UA) Negative (Negative); Ketones,Urine Negative (Negative); Protein,Urine 1+ (Negative); Specific Gravity, Urine 1.025 (1.005-1.030)
[2023-07-23 12:54] LABS: Bilirubin,Urine Negative (Negative); UTC Leukocyte Esterase,Urine 3+ (Negative); UTC Nitrate,Urine Positive (Negative); Urobilinogen,Urine 1 EU/dl (0.2)
[2023-07-23 13:14] LABS: UTC Influenza A Antigen Negative (Negative)
[2023-07-23 13:15] LABS: UTC Influenza B Antigen Negative (Negative)
[2023-07-23 13:16] LABS: UTC Strep Screen (Rapid) Negative (Negative)
[2023-07-23 13:37] VITALS: BP 123/78; PULSE 84; RESP 20; TEMP 37.1; O2SAT 96
== END 2023-07-23 13:37 | disposition home or self-care (01) ==
PROVIDERS: Emergency Provider Nurse Practitioner Family; PCP Nurse Practitioner Family
DX: B96.29 Other Escherichia coli [E. coli] as the cause of diseases classified elsewhere (principal); N39.0 Urinary tract infection, site not specified; M54.59 Other low back pain; H66.93 Otitis media, unspecified, bilateral; J06.9 Acute upper respiratory infection, unspecified; R09.81 Nasal congestion; R11.2 Nausea with vomiting, unspecified
CPT/HCPCS: 81003; 87086; 87804; 87880; 99212; 99214; G0463

== ENCOUNTER 2023-08-04 10:28 | Emergency (ER) | payer OTHER, SELFPAY ==
[2023-08-04] VITALS (11 sets, daily range): BP systolic 110–138; BP diastolic 62–97; PULSE 69–78; RESP 15–20; TEMP 36.9; O2SAT 96–100; BMI 29.9
--- NOTE | 2023-08-04 10:48 | ED_ITS ---
Discharge Plan Disposition Patient Disposition: Home, Self-Care Condition: Good Prescriptions Prescriptions: New Probiotic 3 billion cell capsule 3,000 mmu cells PO DAILY Qty: 30 0RF Rx Instructions: administer with a meal No Action valsartan 80 MG tablet 80 mg PO DAILY carvedilol 3.125 MG tablet 3.125 mg PO BID paroxetine HCl 40 MG tablet 40 mg PO DAILY methylprednisolone 4 mg Tablets,Dose Pack 4 mg PO DIRECTED 6 Days Qty: 21 0RF Rx Instructions: Take 1 pack as directed for 6 days phenazopyridine [Pyridium] 200 mg tablet 200 mg PO Q8H 2 Days Qty: 6 0RF ondansetron 4 mg Tablet,Disintegrating 4 mg PO Q8H PRN (Reason: Nausea) Qty: 12 0RF cephalexin 500 mg capsule 500 mg PO QID Qty: 40 0RF Referrals Follow up/Referrals: Mimi Guzman [Primary Care Provider] - See instructions Activity Restrictions/Add. Instructions Additional Instructions/Restrictions: I recommend you contact your primary care doctor to get a stool study as you very well may have C. difficile following your antibiotics. Thankfully your workup was reassuring at this time. That being said please return with any new or worsening symptoms. Clinical Impressions Clinical Impression: Diarrhea Instructions Patient Instructions: DI for Acute Abdominal Pain Discharge ED Provider: Magdi Turner Adult HPI General Chief complaint: Abdominal Pain Stated complaint: diarrhea, Rt side stomach pain Time Seen by Provider: 08/04/23 10:42 Mode of Arrival: Ambulatory Source of Information: Patient Limitations: No Limitations Description of Symptoms (Recalled from ER Triage Doc. by RN): pt presents to ED with c/o diarrhea, left sided abdominal pain. symptoms began friday. pt reports last week she was on keflex for UTI. pt does have frequent UTI's with hx of urinary issues. pt finished abx on and symptoms began friday. History of Present Illness HPI narrative: Patient presents with diarrheal illness, with associated diffuse, nonradiating, mild abdominal pain. She has history of incontinence and bladder stimulator and has completed a recent course of antibiotics. She states she typically has difficulty appreciating signs and symptoms of acute cystitis. She took her antibiotics as directed. She states she has had similar symptoms in the past associated with C. difficile. She denies any fevers or chills. She denies any nausea or vomiting. She denies any blood in her stool. 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 Symptoms were gradual in onset starting several days ago, constant, stable in course. Please note that above description of symptoms, in this electronic medical record under the categorization of recalled from ER triage doctor by RN are reflective of an initial nursing assessment, however, is not reflective of my full history and physical exam that was personally taken and clarified. Consequentially, this preceding description of symptoms, which may include the patient's categorized chief complaint in the EMR, do not reflect my personal clinical impression, and the ultimate description of the patient's history of present illness and stated complaints should be deferred to this section of the note. Unless stated otherwise or congruent with this section of the note, additional signs, symptoms, or incongruence should thus be interpreted as inaccu rate with my clinical impression. Related Data Home Medications Medication Instructions Recorded Confirmed carvedilol 3.125 mg tablet 3.125 mg PO BID HEART 12/20/21 07/23/23 paroxetine HCl 40 mg tablet 40 mg PO DAILY Anxiety 12/20/21 07/23/23 valsartan 80 mg tablet 80 mg PO DAILY Hypertension 12/20/21 07/23/23 Previous Rx's Medication Instructions Recorded cephalexin 500 mg capsule 500 mg PO QID #40 caps 07/23/23 methylprednisolone 4 mg tablets in 4 mg PO DIRECTED 6 days #21 tabs 07/23/23 a dose pack ondansetron 4 mg disintegrating 4 mg PO Q8H PRN Nausea #12 tabs 07/23/23 tablet phenazopyridine 200 mg tablet 200 mg PO Q8H 2 days #6 tabs 07/23/23 (Pyridium) lactobacillus combination no.4 3 3,000 mmu cells PO DAILY #30 caps 08/04/23 billion cell capsule (Probiotic) Allergies Allergy/AdvReac Type Severity Reaction Status Date / Time ciprofloxacin Allergy Unknown NAUSEA / Verified 07/23/23 12:58 VOMITING buspirone [From BuSpar] Allergy Rash Verified 07/23/23 12:58 PF[facility] Disclaimer: The information contained in this section may have been updated after the patient was seen, as this information can be updated by other users. Medical History (Updated 08/04/23 @ 15:27 by Magdi Turner MD) Anxiety Bladder problem Hypertension Urinary tract infection Surgical History History of colonoscopy History of hysterectomy History of laparoscopic cholecystectomy History of tonsillectomy Family History Father Heart attack Mother Diabetes Grandmother Breast cancer Social History Smoking Status: Never smoker alcohol intake: never substance use type: denies use current occupational status: employed Travel in the last 8 weeks: None ROS Obtained: Yes Systems reviewed as appropriate & no additional complaints except as documented As per HPI Physical Exam General General appearance: alert and in no apparent distress Head Head exam: atraumatic and normocephalic Eye Eye exam: Present normal appearance Neck Neck exam: Present normal inspection Chest Chest inspection: Present normal inspection and symmetric chest wall rise Respiratory Respiratory exam: Present normal lung sounds bilaterally; Absent respiratory distress Cardiovascular Cardiovascular exam: Present regular rate and normal rhythm Abdominal Exam Abdominal exam: Present soft and tenderness Abdominal tenderness: Present RLQ and LLQ Neurological Exam Neurological exam: Present alert and oriented X3 Psychiatric Psychiatric exam: Present normal affect and normal mood Skin Skin exam: Present warm and dry Medical Decision Making Medical Records Medical records reviewed: Yes I reviewed the patient's medical records. [place] Inquiry Pt receiving controlled substance: No Vital Signs: 08/04/23 10:30 08/04/23 11:00 08/04/23 11:30 Temperature 98.4 F Temperature Source Oral Pulse Rate 78 75 Pulse Rate [Left Radial] 72 Respiratory Rate 15 20 Blood Pressure 132/78 127/74 Blood Pressure [Right Arm] 138/86 Blood Pressure Mean 88 Blood Pressure Mean [Right Arm] 103 02 Sat by Pulse Oximetry 97 97 96 Oxygen Delivery Method Room Air Room Air 08/04/23 11:45 08/04/23 14:09 08/04/23 14:15 Temperature Temperature Source Pulse Rate 71 71 71 Pulse Rate [Left Radial] Respiratory Rate 20 Blood Pressure 136/77 111/69 117/76 Blood Pressure [Right Arm] Blood Pressure Mean 83 Blood Pressure Mean [Right Arm] 02 Sat by Pulse Oximetry 100 98 98 Oxygen Delivery Method Room Air Room Air 08/04/23 14:30 08/04/23 14:45 08/04/23 15:00 Temperature Temperature Source Pulse Rate 69 72 73 Pulse Rate [Left Radial] Respiratory Rate Blood Pressure 121/79 130/80 123/77 Blood Pressure [Right Arm] Blood Pressure Mean Blood Pressure Mean [Right Arm] 02 Sat by Pulse Oximetry 99 99 100 Oxygen Delivery Method Room Air 08/04/23 15:15 08/04/23 15:38 Temperature 98.4 F Temperature Source Pulse Rate 75 69 Pulse Rate [Left Radial] Respiratory Rate 16 Blood Pressure 135/97 H 110/62 Blood Pressure [Right Arm] Blood Pressure Mean Blood Pressure Mean [Right Arm] 02 Sat by Pulse Oximetry 99 Oxygen Delivery Method Room Air Lab Data Lab Results 08/04/23 10:34: WBC 7.1, RBC 4.61, Hgb 14.5, Hct 44.9, MCV 97.4, MCH 31.5 H, MCHC 32.4, RDW 13.5, Plt Count 210, MPV 8.8, Neut % (Auto) 58.3, Lymph % (Auto) 30.5, [place] % (Auto) 7.8, Eos % (Auto) 3.1, Baso % (Auto) 0.4, Neut # (Auto) 4.1, Lymph # (Auto) 2.2, [place] # (Auto) 0.6, Eos # (Auto) 0.2, Baso # (Auto) 0.0, Sodium 138, Potassium 4.2, Chloride 105, Carbon Dioxide 27, Anion Gap 10.2, BUN 14, Creatinine 0.70, Estimated Creat Clear 127, Estimated GFR 89, Est GFR ( Amer) 108, Glucose 107 H, Calcium 9.0, Total Bilirubin 0.7, AST 39 H, ALT 31, Alkaline Phosphatase 63, Total Protein 7.0, Albumin 4.3, Globulin 2.7, Albumin/Globulin Ratio 1.6, Lipase 85 08/04/23 10:56: Urine Color Yellow, Urine Appearance Clear, Urine pH 6.0, Ur Specific [place] 1.025, Urine Protein Negative, Urine Glucose (UA) Negative, Urine Ketones Negative, Urine Blood Negative, Urine Nitrate Negative, Urine Bilirubin Negative, Urine Urobilinogen 0.2, Ur Leukocyte Esterase Negative, U rine RBC None, Urine WBC Occasional, Ur Squamous Epith Cells Occasional, Urine Bacteria Trace, Hyaline Casts Occasional, Urine Mucus Trace 08/04/23 10:34 08/04/23 10:34 Orders (Tests/Meds): ED MEDICATIONS Discontinued Medications Generic Name Dose Route Start Last Admin Trade Name Freq PRN Reason Stop Dose Admin Lactated Ringer's 1,000 mls @ 999 mls/hr 08/04/23 11:10 08/04/23 11:43 Lactated Ringer's 1000 Ml Bag IV 08/04/23 12:10 999 mls/hr .Q1H1M ONE Administration Iopamidol 75 ml 08/04/23 11:24 08/04/23 11:25 Iopamidol-370 (76%);100ml Bottle IV 08/04/23 11:25 75 ml ONCE ONE Administration Sodium Chloride 10 ml 08/04/23 11:24 Sodium Chloride 0.9% 10ml Syr (Rad Only) IV 09/03/23 11:23 NEEDED PRN Maintain IV Site ORDERS Category Date Time Status CT abdomen pelvis w con Stat Cat Scan 08/04/23 11:09 Completed CBC w/Auto Diff [Complete Blood Count Auto Diff] Stat Lab 08/04/23 10:34 Completed CMP [Comprehensive Metabolic Panel] Stat Lab 08/04/23 10:34 Completed Lipase Stat Lab 08/04/23 10:34 Completed Urinalysis and Microscopic Stat Lab 08/04/23 10:56 Completed Medical Decision Narrative: Patient with history and exam per above presenting for evaluation of diarrhea, crampy abdominal pain in the setting of recent antibiotic use and history of C. difficile Diagnoses considered include infectious diarrhea, hypovolemia, bowel obstruction, electrolyte abnormality ED workup and treatment included: ED MEDICATIONS Discontinued Medications Generic Name Dose Route Start Last Admin Trade Name Vaishnavi PRN Reason Stop Dose Admin Lactated Ringer's 1,000 mls @ 999 mls/hr 08/04/23 11:10 08/04/23 11:43 Lactated Ringer's 1000 Ml Bag IV 08/04/23 12:10 999 mls/hr .Q1H1M ONE Administration Iopamidol 75 ml 08/04/23 11:24 08/04/23 11:25 Iopamidol-370 (76%);100ml Bottle IV 08/04/23 11:25 75 ml ONCE ONE Administration Sodium Chloride 10 ml 08/04/23 11:24 Sodium Chloride 0.9% 10ml Syr (Rad Only) IV 09/03/23 11:23 NEEDED PRN Maintain IV Site ORDERS Category Date Time Status CT abdomen pelvis w con Stat Cat Scan 08/04/23 11:09 Completed CBC w/Auto Diff [Complete Blood Count Auto Diff] Stat Lab 08/04/23 10:34 Completed CMP [Comprehensive Metabolic Panel] Stat Lab 08/04/23 10:34 Completed Lipase Stat Lab 08/04/23 10:34 Completed Urinalysis and Microscopic Stat Lab 08/04/23 10:56 Completed Labs were independently interpreted by me, significant for no acute findings Imaging was independently visualized and interpreted by me, significant for findings consistent with diarrheal illness, no acute surgical pathology. Please refer to radiology report for full details. Stool sample was unable to be collected in the emergency department My clinical impression at this time is most consistent with presumed infectious diarrhea for which patient will follow-up with PCP I discussed my clinical impression with patient and answered all questions. At this time, the evidence for any other entities in the differential is insufficient to warrant any further testing or ED observation. This was explained to the patient. The patient was advised that persistent or worsening symptoms require further evaluation. I confirmed the patient's understanding of this discussion. Critical Care Critical Care Time Critical Care Time: No
[2023-08-04 10:50] LABS: Basophils % 0.4 % (0.1-2.0); Eosinophils # 0.2 K/mm3 (0.0-0.4); Eosinophils % 3.1 % (0.1-12.0); Hematocrit 44.9 % (37.0-47.0); Hemoglobin 14.5 g/dL (12.2-16.2); Lymphocytes # 2.2 K/mm3 (0.7-4.5); Lymphocytes % 30.5 % (10-50); Mean Corpuscular HGB Conc 32.4 g/dL (31.8-35.4); Mean Corpuscular Hemoglobin 31.5 pg (27.0-31.2); Mean Corpuscular Volume 97.4 fl (81-99); Mean Platelet Volume 8.8 fl (7.4-10.4); Monocytes # 0.6 K/mm3 (0.1-1.0); Monocytes % 7.8 % (1.7-9.3); Neutrophils # 4.1 K/mm3 (1.8-7.8); Neutrophils % 58.3 % (37.0-80.0); Platelet Count 210 K/mm3 (142-424); Red Blood Count 4.61 M/mm3 (4.20-5.40); Red Cell Distribution Width 13.5 % (11.5-17.5); White Blood Count 7.1 K/mm3 (4.8-10.8)
[2023-08-04 11:01] LABS: Alanine Aminotransferase 31 U/L (12-78); Albumin Level 4.3 g/dl (3.5-5.0); Albumin/Globulin Ratio 1.6 (1.1-1.8); Alkaline Phosphatase 63 U/L (38-126); Anion Gap 10.2 mEq/L (5-15); Aspartate Amino Transferase 39 U/L (14-36); Bilirubin,Total 0.7 mg/dl (0.2-1.3); Blood Urea Nitrogen 14 mg/dl (7-17); Carbon Dioxide 27 mmol/L (22.0-30.0); Chloride 105 mmol/L (98-107); Creatinine Clearance Estimated 127 mL/min (50-200); Estimated Glomerular Filt Rate 89 ml/min (>60); GFR (African American) 108 ML/MIN (>60); Globulin 2.7 g/dL (1.3-3.2); Glucose 107 mg/dl (74-100); Lipase 85 U/L (23-300); Potassium 4.2 mmoL/L (3.5-5.1); Sodium 138 mmol/L (136-145)
[2023-08-04 11:02] LABS: Microscopic, Urine URINE MICROSCOPIC (MICROSCOPIC)
[2023-08-04 11:03] LABS: Appearance,Urine CLEAR (Clear); Bilirubin,Urine Negative (Negative); Blood, Urine Negative (Negative); Color,Urine YELLOW (Yellow); Glucose,Urine (UA) Negative (Negative); Ketones,Urine Negative (Negative); Leukocyte Esterase,Urine Negative (Negative); Nitrate,Urine Negative (Negative); Protein,Urine Negative (Negative); Specific Gravity, Urine 1.025 (1.005-1.030); Urobilinogen,Urine 0.2 EU/dl (0.2)
--- NOTE | 2023-08-04 11:09 | CT_ITS ---
FINAL REPORT TECHNIQUE: Thin section axial images are obtained through the abdomen and pelvis after intravenous contrast. Reconstruction images were obtained from the axial data. Exam was performed using dose reduction techniques. CLINICAL HISTORY: RUQ pain, involuntary guarding, hx bladder dysfunc COMPARISON: 12/20/2021 FINDINGS: LUNG BASES: Lung bases are clear. Heart size is normal. LIVER: Homogeneous. No focal lesion. GALLBLADDER/BILIARY SYSTEM: Gallbladder is absent. No biliary dilatation. SPLEEN: Unremarkable. PANCREAS: Unremarkable. ADRENALS: Unremarkable. SYSTEM: No hydronephrosis, renal mass, or renal stone. Unremarkable urinary bladder. The uterus has been surgically resected. GI TRACT: There is mild wall thickening of the distal stomach, and gastritis is not excluded. Normal appendix. There are fluid-filled loops of distal small bowel and colon, that may represent enterocolitis. LYMPH NODES/RETROPERITONEUM/MESENTERY: No lymphadenopathy. No abdominal aortic aneurysm. OTHER: No ascites. Remaining soft tissues without acute abnormality. BONES: There is a sclerotic lesion in the left ilium, that is stable when compared to the prior exam of 2021. IMPRESSION: Mild wall thickening of the distal stomach, gastritis not excluded. There are fluid-filled loops of distal small bowel and colon, that may represent enterocolitis. There is a sclerotic lesion in the left ilium, which is stable since the prior exam. Reviewed, Interpreted and Dictated by Lindsey Parker MD Transcribed by Divya Hull Authenticated and [facility]
[2023-08-04] MEDS: IOPAMIDOL-370 (76%);100ML BOTTLE 75 ML IV (11:25)
[2023-08-04 11:41] LABS: Bacteria,Urine Trace /lpf; Hyaline Casts,Urine Occasional #/lpf (0); Mucus,Urine Trace /lpf; Squamous Epithelial Cell,Urine Occasional #/hpf (0-5); WBC,Urine Occasional #/hpf (0-3)
[2023-08-04] MEDS: LACTATED RINGERS 1000ML 1,000 ML 999 ML IV (11:43)
--- NOTE | 2023-08-04 13:15 | PC.NURSE ---
Donny Valverde rounded on pt. No needs voiced. Call light within reach.
== END 2023-08-04 15:39 | disposition home or self-care (01) ==
PROVIDERS: Emergency Provider Emergency Medicine; PCP Nurse Practitioner Family
DX: R10.9 Unspecified abdominal pain (principal); R19.7 Diarrhea, unspecified; I10 Essential (primary) hypertension
CPT/HCPCS: 74177; 80053; 81001; 83690; 85025; 96360; 99285; Q9967

== ENCOUNTER 2023-08-05 12:09 | Outpatient (CLI) | payer OTHER, SELFPAY | END 2023-08-05 23:59 | PROVIDERS: PCP Nurse Practitioner Family; Visit Provider Nurse Practitioner Family | DX: R10.9 Unspecified abdominal pain (principal); R19.7 Diarrhea, unspecified; E78.2 Mixed hyperlipidemia; I10 Essential (primary) hypertension; F41.1 Generalized anxiety disorder; R23.3 Spontaneous ecchymoses | CPT/HCPCS: 87493 ==

== ENCOUNTER 2023-10-23 19:14 | Emergency (ER) | payer OTHER, SELFPAY ==
[2023-10-23 19:14] VITALS: BP 154/84; PULSE 78; RESP 18; TEMP 36.6; O2SAT 99; BMI 29.0
--- NOTE | 2023-10-23 19:15 | ECG_ITS ---
APPROVED REPORT Exam: Resting ECG HR:78 bpm ECG Measurements Heart Rate 78 AXES SC 177 P 44 QRSd 93 QRS 19 QT 367 T 29 QTc 400 Conclusion SINUS RHYTHM LOW QRS VOLTAGE IN PRECORDIAL LEADS [QRS DEFLECTION < 1.0 mV IN CHEST LEADS] BORDERLINE ECG Electronically signed by : KELLY GATES, 10/23/2023 23:24:22
--- NOTE | 2023-10-23 19:21 | ED_ITS ---
<Statement entered by Nimco Arevalo DO - 10/23/23 23:16> I was consulted by the TERESITA, and we discussed the complexity of the problems being addressed. I approved the treatment and management plan for this patient's care in the emergency department, thus performing a substantive portion of the medical decision making. Nimco Arevalo DO Discharge Plan Disposition Patient Disposition: Home, Self-Care Condition: Good Prescriptions Prescriptions: New nitrofurantoin macrocrystal 100 mg capsule 100 mg PO BID 7 Days Qty: 14 0RF Rx Instructions: must administer with a meal/food No Action valsartan 80 MG tablet 80 mg PO DAILY carvedilol 3.125 MG tablet 3.125 mg PO BID paroxetine HCl 40 MG tablet 40 mg PO DAILY methylprednisolone 4 mg Tablets,Dose Pack 4 mg PO DIRECTED 6 Days Qty: 21 0RF Rx Instructions: Take 1 pack as directed for 6 days phenazopyridine [Pyridium] 200 mg tablet 200 mg PO Q8H 2 Days Qty: 6 0RF ondansetron 4 mg Tablet,Disintegrating 4 mg PO Q8H PRN (Reason: Nausea) Qty: 12 0RF cephalexin 500 mg capsule 500 mg PO QID Qty: 40 0RF Probiotic 3 billion cell capsule 3,000 mmu cells PO DAILY Qty: 30 0RF Rx Instructions: administer with a meal Referrals Follow up/Referrals: Mimi Guzman [Primary Care Provider] - See instructions Activity Restrictions/Add. Instructions Additional Instructions/Restrictions: Follow-up closely with your PCP. Please check your portal and continue taking antibiotic until urine culture comes back. If it is negative you can stop antibiotic. Return to ER for any worsening signs or symptoms. Clinical Impressions Clinical Impression: Myalgia and myositis, Bacteriuria Discharge ED Provider: Nimco Arevalo General Adult HPI <ADEN Butcher - Last Filed: 10/23/23 22:34> General Chief complaint: PAIN Stated complaint: Chest pain Time Seen by Provider: 10/23/23 19:21 History of Present Illness HPI narrative: Patient presents for 3 days of malaise fatigue and body wide muscle soreness. Patient also reports chest pressure that began today but no shortness of breath fever chills hemoptysis hematochezia melena nausea vomiting diarrhea. Patient has a neurogenic bladder and has to self cath but otherwise has had no acute medical problems recently. Related Data Home Medications Medication Instructions Recorded Confirmed carvedilol 3.125 mg tablet 3.125 mg PO BID HEART 12/20/21 07/23/23 paroxetine HCl 40 mg tablet 40 mg PO DAILY Anxiety 12/20/21 07/23/23 valsartan 80 mg tablet 80 mg PO DAILY Hypertension 12/20/21 07/23/23 Previous Rx's Medication Instructions Recorded cephalexin 500 mg capsule 500 mg PO QID #40 caps 07/23/23 methylprednisolone 4 mg tablets in 4 mg PO DIRECTED 6 days #21 tabs 07/23/23 a dose pack ondansetron 4 mg disintegrating 4 mg PO Q8H PRN Nausea #12 tabs 07/23/23 tablet phenazopyridine 200 mg tablet 200 mg PO Q8H 2 days #6 tabs 07/23/23 (Pyridium) lactobacillus combination no.4 3 3,000 mmu cells PO DAILY #30 caps 08/04/23 billion cell capsule (Probiotic) nitrofurantoin macrocrystal 100 mg 100 mg PO BID 7 days #14 caps 10/23/23 capsule Allergies Allergy/AdvReac Type Severity Reaction Status Date / Time ciprofloxacin Allergy Unknown NAUSEA / Verified 07/23/23 12:58 VOMITING buspirone [From BuSpar] Allergy Rash Verified 07/23/23 12:58 PFSH <ADEN Butcher - Last Filed: 10/23/23 22:34> [facility] Disclaimer: The information contained in this section may have been updated after the patient was seen, as this information can be updated by other users. Medical History (Updated 10/23/23 @ 21:03 by ADEN Butcher) Bladder problem Anxiety Urinary tract infection Hypertension Surgical History History of laparoscopic cholecystectomy History of colonoscopy History of hysterectomy History of tonsillectomy Family History Father Heart attack Mother Diabetes Grandmother Breast cancer Social History Smoking Status: Never smoker alcohol intake: never substance use type: denies use current occupational status: employed Travel in the last 8 weeks: None <ADEN Butcher - Last Filed: 10/23/23 22:34> ROS Obtained: Yes Systems reviewed as appropriate & no additional complaints except as documented Physical Exam <ADEN Butcher - Last Filed: 10/23/23 22:34> General General appearance: alert and in no apparent distress Head Head exam: atraumatic and normal inspection Eye Eye exam: Present normal appearance, PERRL and EOMI ENT ENT exam: Present normal exam, normal oropharynx and mucous membranes moist Neck Neck exam: Present normal inspection, full ROM and trachea midline; Absent lymphadenopathy Chest Chest inspection: Present normal inspection and symmetric chest wall rise Respiratory Respiratory exam: Present normal lung sounds bilaterally; Absent respiratory distress, wheezes, stridor or accessory muscle use Cardiovascular Cardiovascular exam: Present regular rate, normal rhythm, normal heart sounds, +S1 and +S2 Abdominal Exam Abdominal exam: Present soft and normal bowel sounds; Absent tenderness, guarding, rebound or rigidity Extremities Exam Extremities exam: Present normal inspection and full ROM Back Exam Back exam: Present normal inspection and full ROM Neurological Exam Neurological exam: Present alert, oriented X3, CN II-XII intact, normal gait, motor sensory deficit and reflexes normal Psychiatric Psychiatric exam: Present normal affect and normal mood Skin Skin exam: Present warm, dry and normal color Medical Decision Making <ADEN Butcher Last Filed: 10/23/23 22:34> [place] Inquiry Pt receiving controlled substance: No Vital Signs: 10/23/23 19:14 10/23/23 19:25 10/23/23 21:06 Temperature 97.9 F 98.0 F Temperature Source Oral Oral Pulse Rate 78 75 Pulse Rate [Left Radial] 78 Respiratory Rate 18 15 Blood Pressure 128/76 Blood Pressure [Right Arm] 154/84 H Blood Pressure Mean [Right Arm] 107 Blood Pressure Source Automatic Cuff Blood Pressure Source [Right Arm] Automatic Cuff Blood Pressure Position Sitting Blood Pressure Position [Right Arm] Sitting 02 Sat by Pulse Oximetry 99 Oxygen Delivery Method Room Air Room Air Lab Data Lab results reviewed: Yes I reviewed the patient's lab results. Lab Results 10/23/23 19:24: WBC 8.7, RBC 4.20, Hgb 13.3, Hct 40.2, MCV 95.7, MCH 31.7 H, MCHC 33.1, RDW 13.6, Plt Count 229, MPV 8.4, Neut % (Auto) 56.1, Lymph % (Auto) 35.1, [place] % (Auto) 6.1, Eos % (Auto) 2.0, Baso % (Auto) 0.9, Neut # (Auto) 4.9, Lymph # (Auto) 3.1, [place] # (Auto) 0.5, Eos # (Auto) 0.2, Baso # (Auto) 0.1, ESR 12, PT 9.9 L, INR 0.91, Sodium 137, Potassium 3.9, Chloride 102, Carbon Dioxide 30, Anion Gap 8.9, BUN 19 H, Creatinine 0.70, Estimated Creat Clear 125, Estimated GFR 89, Est GFR ( Amer) 108, Glucose 98, Calcium 9.4, Magnesium 1.7, Total Bilirubin 0.3, AST 30, ALT 26, Alkaline Phosphatase 95, Total Creatine Kinase 148 H, Troponin I < 0.01, C-Reactive Protein 3.3, Total Protein 6.6, Albumin 4.0, Globulin 2.6, Albumin/Globulin Ratio 1.5, Lipase 111, TSH 2.52 10/23/23 19:42: Lactate 1.2 10/23/23 20:25: Chlamy pneumoniae PCR Not detected, Adenovirus (PCR) Not detected, B. pertussis DNA (PCR) Not detected, Coronavirus OC43 (PCR) Not detected, Coronavirus HKU1 (PCR) Not detected, Coronavirus 229E (PCR) Not detected, SARS-CoV-2 (PCR) Not detected 10/23/23 20:25: SARS-CoV-2 (PCR) Not detected, Coronavirus NL63 (PCR) Not detected, Human Metapneumovir PCR Not detected, Influenza A (H1) PCR Not detected, Influ A (H1N1/09) PCR Not detected, Influenza A (H3) PCR Not detected, Influenza Type A (PCR) Not detected, Influenza A Untype (PCR) Not detected, Influenza Type B (PCR) Not detected 10/23/23 20:25: Influenza Type B (PCR) Not detected, M. pneumoniae (PCR) Not detected, Parainfluenza 1 (PCR) Not detected, Parainfluenza 2 (PCR) Not detected, Parainfluenza 3 (PCR) Not detected, Parainfluenza 4 (PCR) Not detected, RSV (PCR) Not detected, Entero/Rhino (PCR) Not detected 10/23/23 20:30: Urine Color Yellow, Urine Appearance Sl cloudy, Urine pH 6.0, Ur Specific Ferdinand 1.020, Urine Protein Negative, Urine Glucose (UA) Negative, Urine Ketones Negative, Urine Blood Negative, Urine Nitrate Positive, Urine Bilirubin Negative, Urine Urobilinogen 0.2, Ur Leukocyte Esterase Negative, Urine WBC Occasional, Urine Bacteria 4+ 10/23/23 19:24 10/23/23 19:24 Orders (Tests/Meds): ED MEDICATIONS Discontinued Medications Generic Name Dose Route Start Last Admin Trade Name Freq PRN Reason Stop Dose Admin Acetaminophen 1,000 mg 10/23/23 19:33 10/23/23 19:52 Acetaminophen 1,000mg/100ml Vial IV 10/23/23 19:34 1,000 mg ONCE ONE Administration Dexamethasone Sodium Phosphate 10 mg 10/23/23 19:33 10/23/23 19:46 Dexamethasone 4mg/Ml 5ml Mdv IV 10/23/23 19:34 Not Given ONCE ONE Dexamethasone Sodium Phosphate 10 mg 10/23/23 19:45 10/23/23 19:53 Dexamethasone 4mg/Ml 1ml Vial IV 10/23/23 19:46 10 mg ONCE ONE Administration Lactated Ringer's 1,000 mls @ 999 mls/hr 10/23/23 19:33 10/23/23 19:52 Lactated Ringer's 1000 Ml Bag IV 10/23/23 20:33 999 mls/hr .Q1H1M ONE Administration Ketorolac Tromethamine 15 mg 10/23/23 19:33 10/23/23 19:52 Ketorolac 30mg/Ml Vial IV 10/23/23 19:34 15 mg ONCE ONE Administration Nitrofurantoin Macrocrystals 100 mg 10/23/23 20:59 10/23/23 21:07 Nitrofurantoin 100mg Capsule PO 10/23/23 21:00 100 mg ONCE ONE Administration ORDERS Category Date Time Status Chest XR -- portable [XR chest portable] Stat Exams 10/23/23 19:33 Completed CBC w/Auto Diff [Complete Blood Count Auto Diff] Stat Lab 10/23/23 19:24 Completed CK [Creatine Kinase] Stat Lab 10/23/23 19:24 Completed CMP [Comprehensive Metabolic Panel] Stat Lab 10/23/23 19:24 Completed CRP [C-Reactive Protein] Stat Lab 10/23/23 19:24 Completed ESR [Erythrocyte Sedimentation Rate] Stat Lab 10/23/23 19:24 Completed Full Resp Panel w/COVID ([facility]) Routine Lab 10/23/23 20:25 Completed INR [Prothrombin Time INR] Stat Lab 10/23/23 19:24 Completed Lactic Acid Stat Lab 10/23/23 19:42 Completed Lipase Stat Lab 10/23/23 19:24 Completed Magnesium Stat Lab 10/23/23 19:24 Completed Rapid PCR Covid and Flu A/B Stat Lab 10/23/23 20:25 Completed TSH [Thyroid Stimulating Hormone] Stat Lab 10/23/23 19:24 Completed Trop I [Troponin I] Stat Lab 10/23/23 19:24 Completed UA [Urinalysis and Microscopic] Stat Lab 10/23/23 20:30 Completed Urine Culture Stat Micro 10/23/23 20:30 Received Medical Decision Narrative: In summary patient is a 8-year-old female who presents to the emergency department for evaluation of malaise, myalgias, headache. Patient is hemodynamically stable upon arrival, afebrile. Physical exam is remarkable for day of diffuse myalgias on palpation however muscle strength is 5 out of 5 and she is neurovascularly intact in all 4 extremities without focal neurologic signs [place] Coma Score is 15. Differential diagnosis includes myositis versus rhabdo versus sepsis versus viral syndrome versus ACS etc. Initial workup will be conducted with hematologic labs lead EKG plain from chest x-ray. Initial interventions include crystalloid bolus Toradol Tylenol Decadron. Initial workup reviewed by me shows an undetectable troponin mildly elevated CK, negative troponin, urinalysis that showed bacturia but no pyuria and my informal interpretation of her plain film chest x-ray showed no acute processes. Upon repeat evaluation patient reports improvement in her headache but no improvement at all in her myalgias. Given this patient was given a prescription for Macrobid which she she will initiate now and discontinue if her culture is negative. Patient does have a neurogenic bladder and self caths and this could represent colonization but bacterial response cannot be excluded despite a normal white count with no shift. Additionally we have ordered a full respiratory panel as her COVID and flu were negative to rule out any potential other causative agents. Given this I have asked the patient follow-up closely with her PCP especially if no symptom resolution. <Nimco Arevalo, DO - Last Filed: 10/23/23 23:16> Vital Signs: 10/23/23 19:14 10/23/23 19:25 10/23/23 21:06 Temperature 97.9 F 98.0 F Temperature Source Oral Oral Pulse Rate 78 75 Pulse Rate [Left Radial] 78 Respiratory Rate 18 15 Blood Pressure 128/76 Blood Pressure [Right Arm] 154/84 H Blood Pressure Mean [Right Arm] 107 Blood Pressure Source Automatic Cuff Blood Pressure Source [Right Arm] Automatic Cuff Blood Pressure Position Sitting Blood Pressure Position [Right Arm] Sitting 02 Sat by Pulse Oximetry 99 Oxygen Delivery Method Room Air Room Air Lab Data Lab Results 10/23/23 19:24: WBC 8.7, RBC 4.20, Hgb 13.3, Hct 40.2, MCV 95.7, MCH 31.7 H, MCHC 33.1, RDW 13.6, Plt Count 229, MPV 8.4, Neut % (Auto) 56.1, Lymph % (Auto) 35.1, [place] % (Auto) 6.1, Eos % (Auto) 2.0, Baso % (Auto) 0.9, Neut # (Auto) 4.9, Lymph # (Auto) 3.1, [place] # (Auto) 0.5, Eos # (Auto) 0.2, Baso # (Auto) 0.1, ESR 12, PT 9.9 L, INR 0.91, Sodium 137, Potassium 3.9, Chloride 102, Carbon Dioxide 30, Anion Gap 8.9, BUN 19 H, Creatinine 0.70, Estimated Creat Clear 125, Estimated GFR 89, Est GFR ( Amer) 108, Glucose 98, Calcium 9.4, Magnesium 1.7, Total Bilirubin 0.3, AST 30, ALT 26, Alkaline Phosphatase 95, Total Creatine Kinase 148 H, Troponin I < 0.01, C-Reactive Protein 3.3, Total Protein 6.6, Albumin 4.0, Globulin 2.6, Albumin/Globulin Ratio 1.5, Lipase 111, TSH 2.52 10/23/23 19:42: Lactate 1.2 10/23/23 20:25: Chlamy pneumoniae PCR Not detected, Adenovirus (PCR) Not detected, B. pertussis DNA (PCR) Not detected, Coronavirus OC43 (PCR) Not detected, Coronavirus HKU1 (PCR) Not detected, Coronavirus 229E (PCR) Not detected, SARS-CoV-2 (PCR) Not detected 10/23/23 20:25: SARS-CoV-2 (PCR) Not detected, Coronavirus NL63 (PCR) Not detected, Human Metapneumovir PCR Not detected, Influenza A (H1) PCR Not detected, Influ A (H1N1/09) PCR Not detected, Influenza A (H3) PCR Not detected, Influenza Type A (PCR) Not detected, Influenza A Untype (PCR) Not detected, Influenza Type B (PCR) Not detected 10/23/23 20:25: Influenza Type B (PCR) Not detected, M. pneumoniae (PCR) Not detected, Parainfluenza 1 (PCR) Not detected, Parainfluenza 2 (PCR) Not detected, Parainfluenza 3 (PCR) Not detected, Parainfluenza 4 (PCR) Not detected, RSV (PCR) Not detected, Entero/Rhino (PCR) Not detected 10/23/23 20:30: Urine Color Yellow, Urine Appearance Sl cloudy, Urine pH 6.0, Ur Specific [place] 1.020, Urine Protein Negative, Urine Glucose (UA) Negative, Urine Ketones Negative, Urine Blood Negative, Urine Nitrate Positive, Urine Bilirubin Negative, Urine Urobilinogen 0.2, Ur Leukocyte Esterase Negative, Urine WBC Occasional, Urine Bacteria 4+ Orders (Tests/Meds): ED MEDICATIONS Discontinued Medications Generic Name Dose Route Start Last Admin Trade Name Freq PRN Reason Stop Dose Admin Acetaminophen 1,000 mg 10/23/23 19:33 10/23/23 19:52 Acetaminophen 1,000mg/100ml Vial IV 10/23/23 19:34 1,000 mg ONCE ONE Administration Dexamethasone Sodium Phosphate 10 mg 10/23/23 19:33 10/23/23 19:46 Dexamethasone 4mg/Ml 5ml Mdv IV 10/23/23 19:34 Not Given ONCE ONE Dexamethasone Sodium Phosphate 10 mg 10/23/23 19:45 10/23/23 19:53 Dexamethasone 4mg/Ml 1ml Vial IV 10/23/23 19:46 10 mg ONCE ONE Administration Lactated Ringer's 1,000 mls @ 999 mls/hr 10/23/23 19:33 10/23/23 19:52 Lactated Ringer's 1000 Ml Bag IV 10/23/23 20:33 999 mls/hr .Q1H1M ONE Administration Ketorolac Tromethamine 15 mg 10/23/23 19:33 10/23/23 19:52 Ketorolac 30mg/Ml Vial IV 10/23/23 19:34 15 mg ONCE ONE Administration Nitrofurantoin Macrocrystals 100 mg 10/23/23 20:59 10/23/23 21:07 Nitrofurantoin 100mg Capsule PO 10/23/23 21:00 100 mg ONCE ONE Administration ORDERS Category Date Time Status Chest XR -- portable [XR chest portable] Stat Exams 10/23/23 19:33 Completed CBC w/Auto Diff [Complete Blood Count Auto Diff] Stat Lab 10/23/23 19:24 Completed CK [Creatine Kinase] Stat Lab 10/23/23 19:24 Completed CMP [Comprehensive Metabolic Panel] Stat Lab 10/23/23 19:24 Completed CRP [C-Reactive Protein] Stat Lab 10/23/23 19:24 Completed ESR [Erythrocyte Sedimentation Rate] Stat Lab 10/23/23 19:24 Completed Full Resp Panel w/COVID ([facility]) Routine Lab 10/23/23 20:25 Completed INR [Prothrombin Time INR] Stat Lab 10/23/23 19:24 Completed Lactic Acid Stat Lab 10/23/23 19:42 Completed Lipase Stat Lab 10/23/23 19:24 Completed Magnesium Stat Lab 10/23/23 19:24 Completed Rapid PCR Covid and Flu A/B Stat Lab 10/23/23 20:25 Completed TSH [Thyroid Stimulating Hormone] Stat Lab 10/23/23 19:24 Completed Trop I [Troponin I] Stat Lab 10/23/23 19:24 Completed UA [Urinalysis and Microscopic] Stat Lab 10/23/23 20:30 Completed Urine Culture Stat Micro 10/23/23 20:30 Received ECG Data Tracing #1: I reviewed this ECG and interpreted as documented below: Normal sinus rhythm with a ventricular rate of [address] changes concerning for ischemia. Normal axis and intervals. ECG initial impression date: 10/23/23 ECG initial impression time: 19:17 Critical Care <ADEN Butcher - Last Filed: 10/23/23 22:34> Critical Care Time Critical Care Time: No
[2023-10-23 19:25] VITALS: PULSE 78
--- NOTE | 2023-10-23 19:33 | XR_ITS ---
PROCEDURE INFORMATION: Exam: XR Chest Exam date and time: 10/23/2023 7:45 PM Age: 48 years old Clinical indication: Other: Chest pain and pressure TECHNIQUE: Imaging protocol: Radiologic exam of the chest. Views: 1 view. COMPARISON: CT ABDOMEN PELVIS W CON 08/04/2023 11:23 AM FINDINGS: Lungs: Low lung volumes. Pulmonary vasculature grossly normal. Mild linear densities in the perihilar and basilar distributions likely representing mild subsegmental atelectasis from low lung volumes. No gross pulmonary infiltrates. Pleural spaces: No pleural effusion. No pneumothorax. Heart/Mediastinum: Heart size normal. No tracheal/mediastinal shift. Bones/joints: No acute osseous abnormalities are identified. IMPRESSION: 1. No acute thoracic process. 2. Low lung volumes with minor perihilar and basilar subsegmental atelectasis.
[2023-10-23 19:44] LABS: Basophils # 0.1 K/mm3 (0-0.2); Basophils % 0.9 % (0.1-2.0); Eosinophils # 0.2 K/mm3 (0.0-0.4); Hematocrit 40.2 % (37.0-47.0); Hemoglobin 13.3 g/dL (12.2-16.2); Lymphocytes # 3.1 K/mm3 (0.7-4.5); Lymphocytes % 35.1 % (10-50); Mean Corpuscular HGB Conc 33.1 g/dL (31.8-35.4); Mean Corpuscular Hemoglobin 31.7 pg (27.0-31.2); Mean Corpuscular Volume 95.7 fl (81-99); Mean Platelet Volume 8.4 fl (7.4-10.4); Monocytes # 0.5 K/mm3 (0.1-1.0); Monocytes % 6.1 % (1.7-9.3); Neutrophils # 4.9 K/mm3 (1.8-7.8); Neutrophils % 56.1 % (37.0-80.0); Platelet Count 229 K/mm3 (142-424); Red Cell Distribution Width 13.6 % (11.5-17.5); White Blood Count 8.7 K/mm3 (4.8-10.8)
[2023-10-23 19:49] LABS: Chloride 102 mmol/L (98-107); INR 0.91 (0.9-1.1); Potassium 3.9 mmoL/L (3.5-5.1); Prothrombin Time 9.9 seconds (10.1-12.5); Sodium 137 mmol/L (136-145)
[2023-10-23 19:52] LABS: Alanine Aminotransferase 26 U/L (12-78); Albumin/Globulin Ratio 1.5 (1.1-1.8); Alkaline Phosphatase 95 U/L (38-126); Anion Gap 8.9 mEq/L (5-15); Aspartate Amino Transferase 30 U/L (14-36); Bilirubin,Total 0.3 mg/dl (0.2-1.3); Blood Urea Nitrogen 19 mg/dl (7-17); Calcium 9.4 mg/dl (8.4-10.2); Carbon Dioxide 30 mmol/L (22.0-30.0); Creatine Kinase 148 U/L (30-135); Creatinine Clearance Estimated 125 mL/min (50-200); Estimated Glomerular Filt Rate 89 ml/min (>60); GFR (African American) 108 ML/MIN (>60); Globulin 2.6 g/dL (1.3-3.2); Glucose 98 mg/dl (74-100); Total Protein,Serum 6.6 g/dl (6.3-8.2)
[2023-10-23] MEDS: LACTATED RINGERS 1000ML 1,000 ML 999 ML IV (19:52)
[2023-10-23] MEDS: ACETAMINOPHEN 1,000MG/100ML VIAL 1000 MG IV (19:52)
[2023-10-23] MEDS: KETOROLAC 30MG/ML VIAL 15 MG IV (19:52)
[2023-10-23 19:53] LABS: Lipase 111 U/L (23-300); Magnesium 1.7 mg/dl (1.6-2.3)
[2023-10-23] MEDS: DEXAMETHASONE 4MG/ML 1ML VIAL 10 MG IV (19:53)
[2023-10-23 19:56] LABS: Lactic Acid 1.2 mmol/L (0.7-2.1)
[2023-10-23 19:58] LABS: C-Reactive Protein 3.3 mg/L (0-4)
[2023-10-23 20:07] LABS: Erythrocyte Sedimentation Rate 12 mm/hr (0-20)
[2023-10-23 20:18] LABS: Troponin I < 0.01 ng/ml (0.00-0.034)
[2023-10-23 20:26] LABS: Thyroid Stimulating Hormone 2.52 uIU/mL (0.465-4.68)
[2023-10-23 20:31] LABS: Coronavirus 19, PCR Not Detected (NotDetected); Influenza A, PCR Not Detected (NotDetected); Influenza B, PCR Not Detected (NotDetected)
[2023-10-23 20:33] LABS: Microscopic, Urine URINE MICROSCOPIC (MICROSCOPIC)
[2023-10-23 20:36] LABS: Appearance,Urine SL CLOUDY (Clear); Bilirubin,Urine Negative (Negative); Blood, Urine Negative (Negative); Color,Urine YELLOW (Yellow); Glucose,Urine (UA) Negative (Negative); Ketones,Urine Negative (Negative); Leukocyte Esterase,Urine Negative (Negative); Nitrate,Urine POSITIVE (Negative); Protein,Urine Negative (Negative); Urobilinogen,Urine 0.2 EU/dl (0.2)
[2023-10-23 20:45] LABS: Bacteria,Urine 4+ /lpf; WBC,Urine Occasional #/hpf (0-3)
[2023-10-23 20:49] LABS: Adenovirus,PCR Not Detected (NotDetected); Bordetella Pertussis Not Detected (NotDetected); Chlamydophila Pneumoniae, PCR Not Detected (NotDetected); Coronavirus 19, PCR Not Detected (NotDetected); Coronavirus 229E Not Detected (NotDetected); Coronavirus NL63 Not Detected (NotDetected); Coronavirus OC43 Not Detected (NotDetected); Coronovirus HKU1,PCR Not Detected (NotDetected); Human Metapneumovirus Not Detected (NotDetected); Influenza A, PCR Not Detected (NotDetected); Influenza AH1, 2009 Not Detected (NotDetected); Influenza AH1, PCR Not Detected (NotDetected); Influenza AH3,PCR Not Detected (NotDetected); Influenza B, PCR Not Detected (NotDetected); Mycoplasma Pneumoniae, PCR Not Detected (NotDetected); Parainfluenza 1, PCR Not Detected (NotDetected); Parainfluenza 2, PCR Not Detected (NotDetected); Parainfluenza 3, PCR Not Detected (NotDetected); Parainfluenza 4, PCR Not Detected (NotDetected); Respiratory Syncytial Virus Not Detected (NotDetected); Rhinovirus/Enterovirus Not Detected (NotDetected)
[2023-10-23 21:06] VITALS: BP 128/76; PULSE 75; RESP 15; TEMP 36.7; O2SAT 98
[2023-10-23] MEDS: NITROFURANTOIN 100MG CAPSULE 100 MG PO (21:07)
--- NOTE | 2023-10-24 10:50 | PC.NURSE ---
urine culture discussed with , pt dc with macrobid, ntd
--- NOTE | 2023-10-25 08:01 | PC.NURSE ---
discussed urine culture with jania Oconnell with luciano, ntd
== END 2023-10-23 21:09 | disposition home or self-care (01) ==
PROVIDERS: Physician Assistant; Emergency Provider Emergency Medicine; PCP Nurse Practitioner Family
DX: R07.9 Chest pain, unspecified (principal); R82.71 Bacteriuria; B96.29 Other Escherichia coli [E. coli] as the cause of diseases classified elsewhere; M79.18 Myalgia, other site; I10 Essential (primary) hypertension
CPT/HCPCS: 71045; 80053; 81001; 82550; 83605; 83690; 83735; 84443; 84484; 85025; 85610; 85651; 86140; 87086; 87088; 87186; 87581; 87632; 87635; 87636; 87798; 93005; 96361; 96374; 96375; 99285; J0131